=== PATIENT | male | born 1985 | race Caucasian/White ===

== ENCOUNTER 2017-11-12 18:29 | Emergency (ER) | payer OTHER ==
[~2017-11-12] VITALS: Ht 149.9 cm; Wt 52.2 kg
[2017-11-12 19:21] LABS: INFLUENZA B ANTIGEN None Detected (None Detect)
[2017-11-12] MEDS ORDERED: MEDROLDOSEPACK PO (19:59)
[2017-11-12] MEDS ORDERED: BENZONATATE200 MG PO (19:59)
[2017-11-12] MEDS ORDERED: OSELB75 PO (19:59)
[2017-11-12] MEDS ORDERED: VENTOLIN HFA INH8 GM INH (20:00)
[2017-11-12 20:13] VITALS: BP 118/74
== END 2017-11-12 20:14 | disposition home or self-care (01) ==
LOC: M.ERS 18:29
PROVIDERS: Physician Assistant
DX: J09.X2 Influenza due to identified novel influenza A virus with other respiratory manifestations (principal); Q90.9 Down syndrome, unspecified